=== PATIENT | male | born 1995 | race Caucasian/White ===

== ENCOUNTER 2023-09-03 23:26 | Emergency (ER) | payer MEDICAID, OTHER ==
--- NOTE | 2023-09-04 01:04 | ED Physician Documentation ---
PD HPI HEENT - Stated complaint Stated Complaint: ABCESS TOOTH - Chief complaint Chief Complaint: Heent - History obtained from History obtained from: Patient, Family - History of Present Illness Timing - onset: How many weeks ago (3) Timing - duration: Weeks (3) Timing - details: Gradual onset, Still present Location: Tooth Improves: Medication Associated symptoms: Fever, Other (nausea and aches) Similar symptoms before: Diagnosis (bad tooth) Recently seen: Not recently seen - Additional information Additional information: Mauricio Bello is a 28-year-old male with a history of poor dentition after wearing a grill for some time. He has had prior episodes of dental abscess improved with antibiotic and over the past 3 weeks he has developed pain to several areas in his teeth and now has developed generalized aches, he has had some drainage from one of the teeth periodically and he has developed a fever and nausea. He is allergic to penicillin and has had improvement previously with clindamycin. Review of Systems Constitutional: reports: Fever (today) Eyes: denies: Decreased vision Ears: denies: Ear pain Nose: denies: Rhinorrhea / runny nose Throat: reports: Dental pain / toothache Cardiac: denies: Chest pain / pressure Respiratory: denies: Dyspnea, Cough GI: reports: Nausea. denies: Vomiting Skin: denies: Rash Musculoskeletal: denies: Neck pain, Back pain, Extremity pain PD PAST MEDICAL HISTORY - Past Medical History Cardiovascular: None Respiratory: None Neuro: None Endocrine/Autoimmune: None GI: GERD : None HEENT: None Psych: Anxiety Musculoskeletal: None Derm: None - Past Surgical History Past Surgical History: No - Present Medications Home Medications: Ambulatory Orders Medication Instructions Recorded Confirmed Omeprazole Magnesium [Prilosec Otc] 20 mg PO DAILY #14 tablet. 01/14/15 09/03/23 Clindamycin [Cleocin] 300 mg PO Q6H 7 Days #28 cap 09/04/23 - Allergies Allergies/Adverse Reactions: Allergies Allergy/AdvReac Type Severity Reaction Status Date / Time sulfite Allergy Respiratory Verified 09/03/23 23:35 Penicillins AdvReac Intermediate Emesis Verified 09/03/23 23:35 - Social History Does the pt smoke?: Yes Smoking Status: Current every day smoker Does the pt drink ETOH?: Yes ETOH Use: Beer Does the pt have substance abuse?: No - Immunizations Immunizations are current?: Yes - POLST Patient has POLST: No PD ED PE NORMAL - Vitals Vital signs reviewed: Yes (normal ) - General General: Alert and oriented X 3, No acute distress, Well developed/nourished - HEENT HEENT: Atraumatic, PERRL, EOMI, Other (There are multiple carious teeth. The gingiva to the upper right is tender in several places without evidnece of mass or fluctuance. 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, No motor deficit, No sensory deficit, Normal speech Eye Opening: Spontaneous Motor: Obeys Commands Verbal: Oriented GCS Score: 15 - Psych Psych: Normal mood, Normal affect Results - Vitals Vitals: Vital Signs - 24 hr 09/03/23 09/04/23 23:30 01:17 Temperature 36.7 C Heart Rate 97 85 Respiratory 16 18 Rate Blood Pressure 126/73 125/90 H O2 Saturation 100 98 Oxygen O2 Source Room air PD Medical Decision Making - ED course Complexity details: reviewed results, re-evaluated patient, considered differential, d/w patient ED course: 28-year-old male with poor dentition and evidence of dental infection without obvious areas of fluctuance is placed onto clindamycin. He does not request pain medication. Departure - Departure Disposition: 01 Home, Self Care Clinical Impression: Dental abscess Condition: Stable Instructions: ED Abscess Dental Prescriptions: Clindamycin [Cleocin] 300 mg PO Q6H 7 Days #28 cap Comments: Mauricio, today it looks like you have dental infection in multiple areas. We have E scribed some clindamycin to the right aid in [place]. A follow-up with a dentist is recommended. Forms: PCP List Discharge Date/Time: 09/04/23 01:19
[2023-09-04] MEDS: CLINDAMYCIN 150 MG CAPSULE PO STA (01:15)
[2023-09-04 01:18] VITALS: BP 125/90; O2SAT 98
== END 2023-09-04 01:19 | disposition home or self-care (01) ==
LOC: ED 23:26
DX: K04.7 Periapical abscess without sinus (principal); F17.200 Nicotine dependence, unspecified, uncomplicated
CPT/HCPCS: 99283; A9270